=== PATIENT | female | born 1965 | race Caucasian/White ===

== ENCOUNTER 2016-08-16 19:35 | Emergency (ER) | payer MEDICAID, OTHER ==
[2016-08-16] MEDS ORDERED: ONDANSETRON 4 MG VIAL ONE ×2 (20:42→23:22)
[2016-08-16] MEDS ORDERED: DILAUDID 1 MG/ML AMP ONE ×2 (20:42→23:49)
[2016-08-16] MEDS ORDERED: SODIUM CHLORIDE 0.9% 1,000 ML ONE (20:43)
[2016-08-16] MEDS ORDERED: ED METRONIDAZOLE IV 100 ML IV ONE (23:22)
[2016-08-16] MEDS ORDERED: HYOSCYAMINE 0.5 MG/ML AMP 1 ML ONE (23:23)
[2016-08-16] MEDS ORDERED: LEVOFLOXACIN 500 MG TAB ONE (23:24)
== END 2016-08-17 01:01 | disposition home or self-care (01) ==
LOC: ER 19:35
CPT/HCPCS: 36415; 74177; 80053; 81001; 83690; 85025; 87491; 87591; 87800; 96361; 96365; 96375; 96376